=== PATIENT | female | born 1995 | race Caucasian/White ===

== ENCOUNTER 2017-04-30 00:13 | Emergency (ER) | payer MEDICAID, OTHER, SELFPAY ==
[~2017-04-30] VITALS: Ht 172.7 cm; Wt 106.8 kg
[2017-04-30] MEDS ORDERED: ANTIBIOTIC (00:50)
[2017-04-30 01:17] LABS: HEMATOCRIT 36.5 % (34.6-47.8); HEMOGLOBIN 12.1 g/dL (11.7-16.4); WHITE BLOOD COUNT 10.6 x10^3/uL (4.5-13.2)
[2017-04-30 01:45] LABS: BLOOD UREA NITROGEN 13 mg/dL (7-18)
[2017-04-30 03:19] VITALS: BP 115/46
== END 2017-04-30 03:48 | disposition home or self-care (01) ==
LOC: ED 03:42
DX: O23.11 Infections of bladder in pregnancy, first trimester (principal); O99.211 Obesity complicating pregnancy, first trimester; Z87.891 Personal history of nicotine dependence; Z90.49 Acquired absence of other specified parts of digestive tract; Z3A.01 Less than 8 weeks gestation of pregnancy
CPT/HCPCS: 36415; 76801; 80048; 81001; 82040; 84702; 85025; 87086; 99285

== ENCOUNTER 2017-04-30 21:06 | Emergency (ER) | payer MEDICAID ==
[~2017-04-30] VITALS: Ht 172.7 cm; Wt 107.1 kg
[~2017-04-30 21:06] MED LIST: ANTIBIOTIC
[2017-04-30 21:34] LABS: PATH.CAST-FLAG NOT PRESENT; SPERM-FLAG NOT PRESENT; SRC-FLAG NOT PRESENT; XTAL-FLAG NOT PRESENT; YLC-FLAG NOT PRESENT
[2017-04-30 22:26] LABS: HEMATOCRIT 35.6 % (34.6-47.8); HEMOGLOBIN 11.6 g/dL (11.7-16.4); WHITE BLOOD COUNT 9.4 x10^3/uL (4.5-13.2)
[2017-04-30 22:39] LABS: ASPARTATE AMINO TRANSFERASE 12 U/L (15-37); BLOOD UREA NITROGEN 13 mg/dL (7-18)
[2017-05-01] MEDS ORDERED: LORazepam 2 MG/ML, 1ML ONE (00:19)
[2017-05-01 02:39] VITALS: BP 122/72
== END 2017-05-01 02:40 | disposition home or self-care (01) ==
LOC: ED 21:56
DX: O20.0 Threatened abortion (principal); Z3A.01 Less than 8 weeks gestation of pregnancy; Z87.891 Personal history of nicotine dependence
CPT/HCPCS: 36415; 76801; 80053; 81001; 84702; 85025; 86901; 99285